=== PATIENT | female | born 1990 | race Caucasian/White ===

== ENCOUNTER 2020-12-18 17:06 | Emergency (ER) | payer OTHER ==
[~2020-12-18] VITALS: Ht 175.3 cm; Wt 131.1 kg
[~2020-12-18 17:06] MED LIST: DOXYCYCLINE 10100 MG PO; HYDROCODON-ACE1 EAC7 PO; IBUPROFEN 800800 M1 PO; NORCO 7.5-3251 EACH PO; ZOFRAN4 MG PO
[2020-12-18] MEDS ORDERED: SUPER THERAVIT1 EACH PO (17:20)
[2020-12-18] MEDS ORDERED: XANAX 0.5 MG0.5 MG PO (17:35)
[2020-12-18] MEDS ORDERED: MEDROLDOSEPACK PO (17:35)
[2020-12-18] MEDS ORDERED: VISTARIL 25 MG25 M1 PO (17:35)
[2020-12-18] MEDS ORDERED: FLEXERIL PO (17:35)
[2020-12-18 17:50] VITALS: BP 145/89
== END 2020-12-18 18:02 | disposition home or self-care (01) ==
LOC: M.ERS 17:06
DX: S39.011A Strain of muscle, fascia and tendon of abdomen, initial encounter (principal); F41.9 Anxiety disorder, unspecified; V29.49XA Motorcycle driver injured in collision with other motor vehicles in traffic accident, initial encounter; Y93.89 Activity, other specified; Y92.89 Other specified places as the place of occurrence of the external cause; Y99.8 Other external cause status